=== PATIENT | female | born 1985 | race Caucasian/White ===

== ENCOUNTER 2020-06-06 04:36 | Inpatient (IN) | payer BC ==
[2020-06-06] MEDS ORDERED: ceFAZolin 2 GM in Premix Bag 1 BAG IV ONE (04:43)
[2020-06-06] MEDS ORDERED: Citric Acid/Sodium Citrate Solution 30 ML Cup PO ONE (04:43)
[2020-06-06] MEDS ORDERED: Sodium Chloride 0.9% 10 ML Syringe FLUSH PRN ×2 (04:43→09:31)
[2020-06-06] MEDS ORDERED: Sodium Chloride 0.9% 2.5 ML Syringe FLUSH PRN ×2 (04:43→09:31)
[2020-06-06] MEDS ORDERED: Sodium Chloride 0.9% 10 ML SDV IV PRN (04:43)
[2020-06-06] MEDS ORDERED: Oxytocin/0.9 % Sodium Chloride 30 UNIT/500 ML BAG IV SCH (04:45)
--- NOTE | 2020-06-06 06:12 | PCM.PREANE ---
Preanesthetic Assessment - Anesthesia/Transfusion/Family Hx Anesthesia History: Prior Anesthesia Without Reaction Family History of Anesthesia Reaction: No Transfusion History: No Prior Transfusion(s) Intubation History: Unknown - Review of Systems General: No Symptoms Pulmonary: No Symptoms Cardiovascular: No Symptoms Gastrointestinal: No Symptoms Neurological: No Symptoms Other: Reports: None - Physical Assessment Height: 5 ft 3 in Weight: 72.575 kg ASA Class: 2 Mental Status: Alert & Oriented x3 Airway Class: Mallampati = 2 Dentition: Reports: Normal Dentition Thyro-Mental Finger Breadths: 3 Mouth Opening Finger Breadths: 3 ROM/Head Extension: Full Lungs: Clear to Auscultation, Normal Respiratory Effort Cardiovascular: Regular Rate, Regular Rhythm - Lab Values: Laboratory Last Values WBC 11.47 K/uL (4.0-11.0) H 06/06/20 05:00 RBC 4.27 M/uL (4.30-5.90) L 06/06/20 05:00 Hgb 13.0 g/dL (12.0-16.0) 06/06/20 05:00 Hct 38.4 % (36.0-46.0) 06/06/20 05:00 MCV 89.9 fL (80.0-98.0) 06/06/20 05:00 MCH 30.4 pg (27.0-32.0) 06/06/20 05:00 MCHC 33.9 g/dL (31.0-37.0) 06/06/20 05:00 RDW Std Deviation 41.1 fl (28.0-62.0) 06/06/20 05:00 RDW Coeff of Raghav 13 % (11.0-15.0) 06/06/20 05:00 Plt Count 304 K/uL (150-400) 06/06/20 05:00 MPV 9.20 fL (7.40-12.00) 06/06/20 05:00 Nucleated RBC % 0.0 /100WBC 06/06/20 05:00 Nucleated RBCs # 0 K/uL 06/06/20 05:00 - Allergies Allergies/Adverse Reactions: Allergies Allergy/AdvReac Type Severity Reaction Status Date / Time mold Allergy sinus Verified 05/31/20 10:21 congestion dust Allergy sinus Uncoded 05/31/20 09:40 congestion - Blood Blood Available: No - Anesthesia Plan Pre-Op Medication Ordered: None - Acknowledgements Anesthesia Type Planned: Spinal (General anesthesia back-up plan) Pt an Appropriate Candidate for the Planned Anesthesia: Yes Alternatives and Risks of Anesthesia Discussed w Pt/Guardian: Yes Pt/Guardian Understands and Agrees with Anesthesia Plan: Yes PreAnesthesia Questionnaire HEENT History: Reports: Allergic Rhinitis Cardiovascular History: Reports: None Respiratory History: Reports: Asthma Other Respiratory History: states had asthma when a kid but out grew it about 10 yrs. ago Gastrointestinal History: Reports: None Genitourinary History: Reports: None [employer]OR History: Denies: ( breech presentattion with cord around arond the neck- first C/S) Musculoskeletal History: Reports: Other (See Below) Other Musculoskeletal History: states had injury to left knee that required surgery Neurological History: Reports: None Psychiatric History: Reports: None Endocrine/Metabolic History: Reports: None Hematologic History: Reports: None Immunologic History: Reports: None Oncologic (Cancer) History: Reports: Breast Dermatologic History: Reports: None - Infectious Disease History Infectious Disease History: Reports: None - Past Surgical History Head Surgeries/Procedures: Reports: None HEENT Surgical History: Reports: Oral Surgery Cardiovascular Surgical History: Reports: None Respiratory Surgical History: Reports: None GI Surgical History: Reports: None Female Surgical History: Reports: Mastectomy (2017 for intraductal cancer - l eft side) Endocrine Surgical History: Reports: None Neurological Surgical History: Reports: None Musculoskeletal Surgical History: Reports: Arthroscopic Knee (x2 (left)) Other Musculoskeletal Surgeries/Procedures:: states had ACL reconstruction left knee Oncologic Surgical History: Reports: Mastectomy Other Oncologic Surgeries/Procedures: left breast - SUBSTANCE USE Tobacco Use Status *Q: Former Tobacco User - HOME MEDS Home Medications: Home Meds Mv-Mn/Iron/FA/Herbal/Digestive [ One Tablet] 1 tab PO DAILY 05/31/20 [History] - CURRENT (IN HOUSE) MEDS Current Meds: Current Medications Oxytocin/Sodium Chloride (Oxytocin 30 Unit/500 Ml-Ns) 30 unit in 500 mls @ 250 mls/hr IV TITRATE [facility] Lactated Ringer's (Ringers, Lactated) 1,000 mls @ 500 mls/hr IV BOLUS [place] Sodium Chloride (Saline Flush) 10 ml FLUSH ASDIRECTED PRN PRN Reason: Keep Vein Open Sodium Chloride (Saline Flush) 2.5 ml FLUSH ASDIRECTED PRN PRN Reason: Keep Vein Open Sodium Chloride (Normal Saline) 10 ml IV ASDIRECTED PRN PRN Reason: IV Use Discontinued Medications Citric Acid/Sodium Citrate (Bicitra Solution) 30 ml PO ONETIME ONE Stop: 06/06/20 04:44 Cefazolin Sodium/Dextrose 2 gm (/ Premix) 50 mls @ 100 mls/hr IV ONETIME ONE Stop: 06/06/20 05:12
[2020-06-06] MEDS: Lactated Ringers 1,000 ML IV SCH ×2 (06:15→07:27)
[2020-06-06] MEDS ORDERED: Morphine PF 10 MG/10 ML SDV ONE (07:34)
[2020-06-06] MEDS ORDERED: ceFAZolin/Dextrose,Iso-Osmotic 2 GM/50 ML Duplex Bag IV ONE (07:35)
[2020-06-06] MEDS ORDERED: Oxytocin 10 Units/1 ML SDV ONE (08:25)
[2020-06-06] MEDS ORDERED: Ondansetron 4 MG/2 ML SDV ONE (08:26)
[2020-06-06] MEDS ORDERED: diphenhydrAMINE 50 MG/ML SDV IVPUSH PRN ×2 (08:44→09:31)
[2020-06-06] MEDS ORDERED: Nalbuphine 10 MG/1 ML Vial IVPUSH PRN (08:44)
[2020-06-06] MEDS ORDERED: Naloxone 0.4 MG/ML Syringe IVPUSH PRN (08:44)
[2020-06-06] MEDS ORDERED: Acetaminophen/oxyCODONE 325-5 MG Tab PO PRN ×2 (08:44→09:31)
[2020-06-06] MEDS ORDERED: Acetaminophen/HYDROcodone 325-5 MG Tab PO PRN (08:44)
[2020-06-06] MEDS ORDERED: Dexamethasone 4 MG/ML 5 ML MDV ONE (09:06)
[2020-06-06] MEDS ORDERED: Bisacodyl 10 MG Supp RECTAL PRN (09:31)
[2020-06-06] MEDS ORDERED: Ondansetron 4 MG/2 ML SDV IVPUSH PRN (09:31)
[2020-06-06] MEDS ORDERED: Methylergonovine 0.2 MG/1 ML Amp IM PRN (09:31)
[2020-06-06] MEDS ORDERED: Oxytocin 10 Units/1 ML SDV IM PRN (09:31)
[2020-06-06] MEDS ORDERED: Misoprostol 200 MCG Tab RECTAL PRN (09:31)
[2020-06-06] MEDS ORDERED: Tranexamic Acid 1,000 MG in Sodium Chloride 0.9% 100 ML IV PRN (09:31)
[2020-06-06] MEDS ORDERED: Lanolin 100% Cream 7 GM Tube TOP PRN (09:31)
[2020-06-06] MEDS ORDERED: Lactated Ringers 1,000 ML IV SCH (09:45)
[2020-06-06] MEDS: Ketorolac 30 MG/ML SDV IVPUSH SCH ×3 (09:53→21:39)
--- NOTE | 2020-06-06 10:46 | PCM.POSTAN ---
POST ANESTHESIA ASSESSMENT - MENTAL STATUS Mental Status: Alert, Oriented Free Text/Narrative:: Just states that her vision is blurry - RESPIRATORY Respiratory Status: Respiratory Rate WNL, Airway Patent, O2 Saturation Stable - CARDIOVASCULAR CV Status: Pulse Rate WNL, Blood Pressure Stable - GASTROINTESTINAL GI Status: No Symptoms - PAIN Pain Score: 0 - POST OP HYDRATION Hydration Status: Adequate & Stable - OBSERVATIONS Free Text/Narrative:: The tolerated the procedure well. There were no apparent anesthetic complications at this time. Discharge to floor per criteria.
--- NOTE | 2020-06-06 13:58 | OR ---
SURGEON: Mark Burnette MD DATE OF PROCEDURE: 06/06/2020 INDICATION FOR PROCEDURE: A 34-year-old, G1, P0, at 39 weeks and 2 days, presenting for scheduled section due to breech presentation. The baby was noted to be in complete breech presentation around 36 weeks. Ultrasound showed the baby had a nuchal cord, therefore was not a good candidate for external cephalic version. She had otherwise uncomplicated . She has a history of breast cancer, had left mastectomy and is in remission currently. PREOPERATIVE DIAGNOSES: 1. Tenorio intrauterine at 39 weeks and 2 days. 2. Breech presentation. 3. Nuchal cord. POSTOPERATIVE DIAGNOSES: 1. Tenorio intrauterine at 39 weeks and 2 days. 2. Breech presentation. 3. Nuchal cord. PROCEDURE PERFORMED: Primary low transverse section. ANESTHESIOLOGIST: Dr. Paty Shay. ANESTHESIA: Spinal. FINDINGS: Viable female in complete breech presentation. score of 9 and 9. weight of 6 pounds 10 ounces. Nuchal cord x1. EBL: 600cc Urine Output: 300cc DESCRIPTION OF PROCEDURE: The procedure was discussed with the patient. Risks including bleeding; infection; DVTs; injury to surrounding organs including bladder, bowel, ureters. The patient expressed understanding. Questions answered and consent signed. The patient was brought to the operating room. She received antibiotics and SCDs. Spinal anesthesia was placed and the Law catheter was placed. The abdomen was prepped with chlorhexidine in sterile fashion, then draped and tested for anesthesia. The spinal was found to be adequate. A Pfannenstiel incision was made with a scalpel and dissected down to fascia. Sites of bleeding were noted and cauterized. The fascia was cleared of subcutaneous tissue. The fascia was incised in the midline and extended laterally with curved Ceballos scissors. Adry clamps were placed on the superior fascial edge. The rectus muscles were from the fascia by blunt dissection and using Ceballos scissors. Rectus muscle was along the inferior edge in the same fashion. Peritoneum was identified and the opening was made bluntly. The Drew O retractor was placed in the peritoneal cavity. The bladder was noted to be away from the lower uterine segment. The uterus was incised using the scalpel transversely along the lower uterine segment and extended bluntly. Clear amniotic fluid was noted. The 's hips were grasped and turned to sacrum anterior and elevated through the hysterotomy followed by the delivery of both legs. The right shoulder was then rotated anteriorly and the right arm delivered by sweeping toward the body. Then, the left shoulder and arm were delivered in similar fashion. The head was delivered by elevating the body and flexing the chin. The nose and mouth were suctioned. The umbilical cord was clamped and cut after 30 seconds and no longer pulsating. The baby was pink, crying vigorously, and moving all extremities after delivery. The was handed over to nursery staff. Cord gases were obtained. The placenta was delivered with gentle traction on the umbilical cord. The Drew retractor had slipped out of the incision. Therefore, a bladder blade was used for retraction. The uterus was exteriorized and clean lap used to remove any remaining membranes. Allis clamps were used to grasp the angles and lower edges of the incision. The uterine incision was closed using 0 Monocryl in running locking fashion. A second layer was closed 0 Vicryl in a vertical imbricating fashion. The incision was found to be hemostatic. The bilateral ovaries and fallopian tubes were normal appearing. The uterus was firm and placed back into the peritoneal cavity. The paracolic gutters were cleared of any clots. Copious irrigation of the abdomen was performed. The incision was again checked for hemostasis. The peritoneum was grasped by hemostats and closed using 2-0 Vicryl in running fashion. The rectus muscle was brought together to the midline using a mattress stitch with 0 Vicryl. The rectus muscle was examined and found to be hemostatic. The fascia was closed using 0 Vicryl in running fashion. The subcutaneous tissue was irrigated. No bleeding areas were noted. The subcutaneous layer was brought together with 2-0 plain suture in running fashion. The skin was then closed with 3-0 Monocryl on a Roge needle. ABD pressure dressing was placed over the incision. The patient was stable and transferred to the recovery room. She was given postop care instructions. JESUS DAS /[id number] NATHALIE
[2020-06-06] MEDS: Docusate Sodium 100 MG Cap PO SCH (21:38)
[2020-06-07] MEDS: Ketorolac 30 MG/ML SDV IVPUSH SCH ×2 (04:03→09:32)
--- NOTE | 2020-06-07 08:43 | PCM.PNPP ---
- General Info Date of Service: 06/07/20 Functional Status: Reports: Pain Controlled, Tolerating Diet, Ambulating, Urinating - Review of Systems General: Reports: No Symptoms HEENT: Reports: No Symptoms Pulmonary: Reports: No Symptoms Cardiovascular: Reports: No Symptoms Gastrointestinal: Reports: No Symptoms Genitourinary: Reports: No Symptoms Musculoskeletal: Reports: No Symptoms Skin: Reports: No Symptoms Neurological: Reports: No Symptoms Psychiatric: Reports: No Symptoms - Patient Data Vital Signs - Most Recent: Last Vital Signs Temp 36.6 C 06/07/20 08:39 Pulse 57 L 06/07/20 06:00 Resp 20 06/07/20 08:39 BP 133/80 06/07/20 08:39 Pulse Ox 96 06/07/20 08:39 Weight - Most Recent: 160 lb I&O - Last 24 Hours: Intake & Output 06/06/20 06/07/20 06/07/20 22:59 06:59 14:59 Output Total 192 6305 Balance -375 -7479 Lab Results - Last 24 Hours: Laboratory Results - last 24 hr 06/07/20 Range/Units 05:03 Hgb 9.5 L (12.0-16.0) g/dL Hct 28.5 L (36.0-46.0) % Med Orders - Current: Current Medications Hydrocodone Bitart/Acetaminophen (Walton 325-5 Mg) 2 tab PO Q6H PRN PRN Reason: Pain (moderate 4-6) Bisacodyl (Dulcolax) 10 mg RECTAL ONETIME PRN PRN Reason: Constipation Diphenhydramine HCl (Benadryl) 25 mg IVPUSH Q4H PRN PRN Reason: Itching Stop: 06/07/20 08:45 Diphenhydramine HCl (Benadryl) 25 mg IVPUSH Q6H PRN PRN Reason: Itching or Nausea Docusate Sodium (Colace) 100 mg PO BID [facility] Last Admin: 06/06/20 21:38 Dose: 100 mg Documented by: Emollient Ointment (Lansinoh Hpa) 0 gm TOP ASDIRECTED PRN PRN Reason: Sore Nipples Oxytocin/Sodium Chloride (Oxytocin 30 Unit/500 Ml-Ns) 30 unit in 500 mls @ 250 mls/hr IV TITRATE [facility] Lactated Ringer's (Ringers, Lactated) 1,000 mls @ 500 mls/hr IV BOLUS [facility] Last Admin: 06/06/20 07:27 Dose: 500 mls/hr Documented by: Lactated Ringer's (Ringers, Lactated) 1,000 mls @ 125 mls/hr IV ASDIRECTED [facility] Last Admin: 06/06/20 15:47 Dose: 125 mls/hr Documented by: Tranexamic Acid 1,000 mg/ (Sodium Chloride) 110 mls @ 660 mls/hr IV ONETIME PRN PRN Reason: Bleeding Ibuprofen (Motrin) 800 mg PO Q8H PRN PRN Reason: mild pain or fever Ketorolac Tromethamine (Toradol) 30 mg IVPUSH Q6H [facility] Stop: 06/07/20 09:46 Last Admin: 06/07/20 04:03 Dose: 30 mg Documented by: Methylergonovine Maleate (Methergine) 0.2 mg IM ONETIME PRN PRN Reason: Excessive Vaginal Bleeding Misoprostol (Cytotec) 1,000 mcg RECTAL ONETIME PRN PRN Reason: excessive bleeding Nalbuphine HCl (Nubain) 2.5 mg IVPUSH Q3H PRN PRN Reason: Pruritis Stop: 06/07/20 08:45 Naloxone HCl (Narcan) 0.1 mg IVPUSH ONETIME PRN PRN Reason: Respiratory Depression Stop: 06/07/20 08:45 Ondansetron HCl (Zofran) 4 mg IVPUSH Q4H PRN PRN Reason: Nausea/Vomiting Oxycodone/Acetaminophen (Percocet 325-5 Mg) 1 tab PO ONETIME PRN PRN Reason: Pain (mild 1-3) Oxycodone/Acetaminophen (Percocet 325-5 Mg) 1 tab PO Q4H PRN PRN Reason: Pain (moderate 4-6) Oxycodone/Acetaminophen (Percocet 325-5 Mg) 2 tab PO Q4H PRN PRN Reason: Pain (moderate 4-6) Oxytocin (Pitocin) 10 unit IM ASDIRECTED PRN PRN Reason: Excessive Vaginal Bleeding Sodium Chloride (Saline Flush) 10 ml FLUSH ASDIRECTED PRN PRN Reason: Keep Vein Open Sodium Chloride (Saline Flush) 2.5 ml FLUSH ASDIRECTED PRN PRN Reason: Keep Vein Open Sodium Chloride (Normal Saline) 10 ml IV ASDIRECTED PRN PRN Reason: IV Use Sodium Chloride (Saline Flush) 10 ml FLUSH ASDIRECTED PRN PRN Reason: Keep Vein Open Sodium Chloride (Saline Flush) 2.5 ml FLUSH ASDIRECTED PRN PRN Reason: Keep Vein Open Discontinued Medications Cefazolin Sodium/Dextrose (Ancef) Confirm Administered Dose 2 gm IV .STK-MED ONE Stop: 06/06/20 07:36 Citric Acid/Sodium Citrate (Bicitra Solution) 30 ml PO ONETIME ONE Stop: 06/06/20 04:44 Dexamethasone (Dexamethasone) Confirm Administered Dose 20 mg .ROUTE .STK-MED ONE Stop: 06/06/20 09:07 Cefazolin Sodium/Dextrose 2 gm (/ Premix) 50 mls @ 100 mls/hr IV ONETIME ONE Stop: 06/06/20 05:12 Morphine Sulfate (Duramorph Pf) Confirm Administered Dose 10 mg .ROUTE .STK-MED ONE Stop: 06/06/20 07:35 Ondansetron HCl (Zofran) Confirm Administered Dose 4 mg .ROUTE .STK-MED ONE Stop: 06/06/20 08:27 Oxytocin (Pitocin) Confirm Administered Dose 30 unit .ROUTE .STK-MED ONE Stop: 06/06/20 08:26 - Interaction Disposition, : [place] to Nursery Feeding: Breastfed Infant; Nursed Well Support Person: - Recovery Exam Fundal Tone: Firm Fundal Level: At Umbilicus Fundal Placement: Midline Lochia Amount: Scant Lochia Color: Rubra/Red Perineum Description: Intact, Minimal Bruising/Swelling Episiotomy/Laceration: None Bladder Status: Indwelling Catheter in Place Urinary Elimination: Indwelling Catheter - Exam General: Alert, Oriented, Cooperative, No Acute Distress HEENT: Pupils Equal, Pupils Reactive Neck: Supple, Trachea Midline, No JVD Lungs: Normal Respiratory Effort GI/Abdominal Exam: Soft, Non-Tender, No Organomegaly, No Distention Extremities: Normal Inspection, Normal Range of Motion, Non-Tender, No Pedal Edema Skin: Warm, Dry, Intact Wound/Incisions: Dressing Dry and Intact Neurological: No New Focal Deficit Psy/Mental Status: Alert, Normal Affect, Normal Mood - Problem List Review Problem List Initiated/Reviewed/Updated: Yes - My Orders Last 24 Hours: My Active Orders 06/06/20 09:31 Patient Status [ADT] Routine Ambulate [RC] PER UNIT ROUTINE Antiembolic Devices [RC] PER UNIT ROUTINE Communication Order [RC] PER UNIT ROUTINE Communication Order [RC] PER UNIT ROUTINE Communication Order [RC] Per Unit Routine Intake and Output [RC] Q4H May Shower [RC] ASDIRECTED Notify Provider Intake and Out [RC] ASDIRECTED Notify Provider Vital Signs [RC] ASDIRECTED RT Incentive Spirometry [RC] Q2HWA Vital Signs [RC] PER UNIT ROUTINE Acetaminophen/oxyCODONE [Percocet 325-5 MG] 1 tab PO Q4H PRN Acetaminophen/oxyCODONE [Percocet 325-5 MG] 2 tab PO Q4H PRN Ibuprofen [Motrin] 800 mg PO Q8H PRN Lanolin [Lansinoh HPA] See Dose Instructions TOP ASDIRECTED PRN Methylergonovine [Methergine] 0.2 mg IM ONETIME PRN Ondansetron [Zofran] 4 mg IVPUSH Q4H PRN Oxytocin [Pitocin] 10 unit IM ASDIRECTED PRN Sodium Chloride 0.9% [Saline Flush] 10 ml FLUSH ASDIRECTED PRN Sodium Chloride 0.9% [Saline Flush] 2.5 ml FLUSH ASDIRECTED PRN Tranexamic Acid [Cyklokapron] 1,000 mg Sodium Chloride 0.9% [Normal Saline] 100 ml IV ONETIME bisacodyL [Dulcolax] 10 mg RECTAL ONETIME PRN diphenhydrAMINE [Benadryl] 25 mg IVPUSH Q6H PRN miSOPROStoL [Cytotec] 1,000 mcg RECTAL ONETIME PRN Assess Lochia [WOMSER] Per Unit Routine Assess Uterine Involution [WOMSER] Per Unit Routine Breast Pump [WOMSER] Per Unit Routine Peripheral IV Discontinue [OM.PC] Routine Saline Lock Insert [OM.PC] Routine Sequential Compression Device [OM.PC] Per Unit Routine 06/06/20 09:32 Abdominal Binder [OM.PC] Per Unit Routine 06/06/20 09:45 Ketorolac [Toradol] 30 mg IVPUSH Q6H Lactated Ringers [Ringers, Lactated] 1,000 ml IV ASDIRECTED 06/06/20 Lunch Regular Diet [DIET] 06/06/20 21:00 Docusate Sodium [Colace] 100 mg PO BID 06/08/20 05:00 CBC WITH AUTO DIFF [HEME] Routine - Assessment Assessment:: 34yo POD1 s/p primary LTCS for breech presentation, stable and recovering well. - Plan Plan:: - vital stable - tolerating PO, voiding and ambulating well - pain controlled - Hgb 9.5 today, bleeding light, no s/s of anemia. Will repeat CBC tomorrow - well - Plan for discharge home tomorrow
[2020-06-07] MEDS: Docusate Sodium 100 MG Cap PO SCH ×2 (09:31→20:38)
--- NOTE | 2020-06-07 11:47 | PCM48HPAN ---
Post Anesthesia Note - EVALUATION WITHIN 48HRS OF ANESTHETIC Vital Signs in Normal Range: Yes Patient Participated in Evaluation: Yes Respiratory Function Stable: Yes Airway Patent: Yes Cardiovascular Function Stable: Yes Hydration Status Stable: Yes Pain Control Satisfactory: Yes Nausea and Vomiting Control Satisfactory: Yes Mental Status Recovered: Yes Vital Signs: Last Vital Signs Temp 36.6 C 06/07/20 08:39 Pulse 57 L 06/07/20 06:00 Resp 20 06/07/20 08:39 BP 133/80 06/07/20 08:39 Pulse Ox 96 06/07/20 08:39 - COMMENTS/OBSERVATIONS Free Text/Narrative:: Vision back to "normal" (baseline). She has no complaints at this time. There were no apparent anesthetic complications at this time. Discharge per OB TEAM.
[2020-06-07] MEDS: Ibuprofen 800 MG Tab PO PRN (20:37)
[2020-06-08] MEDS: Acetaminophen/oxyCODONE 325-5 MG Tab PO PRN ×2 (00:36→14:03)
--- NOTE | 2020-06-08 08:05 | PCM.PNPP ---
- General Info Date of Service: 06/08/20 Functional Status: Reports: Pain Controlled, Tolerating Diet, Ambulating, Urinating - Review of Systems General: Reports: No Symptoms HEENT: Reports: No Symptoms Pulmonary: Reports: No Symptoms Cardiovascular: Reports: No Symptoms Gastrointestinal: Reports: No Symptoms Genitourinary: Reports: No Symptoms Musculoskeletal: Reports: No Symptoms Skin: Reports: No Symptoms Neurological: Reports: No Symptoms Psychiatric: Reports: No Symptoms - Patient Data Vital Signs - Most Recent: Last Vital Signs Temp 35.9 C L 06/08/20 04:00 Pulse 59 L 06/08/20 04:00 Resp 17 06/08/20 04:00 BP 118/70 06/08/20 04:00 Pulse Ox 98 06/08/20 04:00 Weight - Most Recent: 160 lb Lab Results - Last 24 Hours: Laboratory Results - last 24 hr 06/08/20 Range/Units 04:43 WBC 10.50 (4.0-11.0) K/uL RBC 3.31 L (4.30-5.90) M/uL Hgb 9.8 L (12.0-16.0) g/dL Hct 30.9 L (36.0-46.0) % MCV 93.4 (80.0-98.0) fL MCH 29.6 (27.0-32.0) pg MCHC 31.7 (31.0-37.0) g/dL RDW Std Deviation 44.7 (28.0-62.0) fl RDW Coeff of Raghav 13 (11.0-15.0) % Plt Count 264 (150-400) K/uL MPV 9.10 (7.40-12.00) fL Neut % (Auto) 54.2 (48.0-80.0) % Lymph % (Auto) 35.4 (16.0-40.0) % [place] % (Auto) 7.2 (0.0-15.0) % Eos % (Auto) 3.0 (0.0-7.0) % Baso % (Auto) 0.2 (0.0-1.5) % Neut # (Auto) 5.7 (1.4-5.7) K/uL Lymph # (Auto) 3.7 H (0.6-2.4) K/uL [place] # (Auto) 0.8 (0.0-0.8) K/uL Eos # (Auto) 0.3 (0.0-0.7) K/uL Baso # (Auto) 0.0 (0.0-0.1) K/uL Nucleated RBC % 0.0 /100WBC Nucleated RBCs # 0 K/uL Med Orders - Current: Current Medications Hydrocodone Bitart/Acetaminophen ([place] 325-5 Mg) 2 tab PO Q6H PRN PRN Reason: Pain (moderate 4-6) Bisacodyl (Dulcolax) 10 mg RECTAL ONETIME PRN PRN Reason: Constipation Diphenhydramine HCl (Benadryl) 25 mg IVPUSH Q6H PRN PRN Reason: Itching or Nausea Docusate Sodium (Colace) 100 mg PO BID [facility] Last Admin: 06/07/20 20:38 Dose: 100 mg Documented by: Emollient Ointment (Lansinoh Hpa) 0 gm TOP ASDIRECTED PRN PRN Reason: Sore Nipples Oxytocin/Sodium Chloride (Oxytocin 30 Unit/500 Ml-Ns) 30 unit in 500 mls @ 250 mls/hr IV TITRATE [facility] Lactated Ringer's (Ringers, Lactated) 1,000 mls @ 500 mls/hr IV BOLUS [facility] Last Admin: 06/06/20 07:27 Dose: 500 mls/hr Documented by: Lactated Ringer's (Ringers, Lactated) 1,000 mls @ 125 mls/hr IV ASDIRECTED [facility] Last Admin: 06/06/20 15:47 Dose: 125 mls/hr Documented by: Tranexamic Acid 1,000 mg/ (Sodium Chloride) 110 mls @ 660 mls/hr IV ONETIME PRN PRN Reason: Bleeding Ibuprofen (Motrin) 800 mg PO Q8H PRN PRN Reason: mild pain or fever Last Admin: 06/07/20 20:37 Dose: 800 mg Documented by: Methylergonovine Maleate (Methergine) 0.2 mg IM ONETIME PRN PRN Reason: Excessive Vaginal Bleeding Misoprostol (Cytotec) 1,000 mcg RECTAL ONETIME PRN PRN Reason: excessive bleeding Ondansetron HCl (Zofran) 4 mg IVPUSH Q4H PRN PRN Reason: Nausea/Vomiting Oxycodone/Acetaminophen (Percocet 325-5 Mg) 1 tab PO ONETIME PRN PRN Reason: Pain (mild 1-3) Last Admin: 06/07/20 17:10 Dose: 1 tab Documented by: Oxycodone/Acetaminophen (Percocet 325-5 Mg) 1 tab PO Q4H PRN PRN Reason: Pain (moderate 4-6) Last Admin: 06/08/20 00:36 Dose: 1 tab Documented by: Oxycodone/Acetaminophen (Percocet 325-5 Mg) 2 tab PO Q4H PRN PRN Reason: Pain (moderate 4-6) Oxytocin (Pitocin) 10 unit IM ASDIRECTED PRN PRN Reason: Excessive Vaginal Bleeding Sodium Chloride (Saline Flush) 10 ml FLUSH ASDIRECTED PRN PRN Reason: Keep Vein Open Sodium Chloride (Saline Flush) 2.5 ml FLUSH ASDIRECTED PRN PRN Reason: Keep Vein Open Sodium Chloride (Normal Saline) 10 ml IV ASDIRECTED PRN PRN Reason: IV Use Sodium Chloride (Saline Flush) 10 ml FLUSH ASDIRECTED PRN PRN Reason: Keep Vein Open Sodium Chloride (Saline Flush) 2.5 ml FLUSH ASDIRECTED PRN PRN Reason: Keep Vein Open Discontinued Medications Cefazolin Sodium/Dextrose (Ancef) Confirm Administered Dose 2 gm IV .STK-MED ONE Stop: 06/06/20 07:36 Citric Acid/Sodium Citrate (Bicitra Solution) 30 ml PO ONETIME ONE Stop: 06/06/20 04:44 Last Admin: 06/07/20 21:21 Dose: Not Given Documented by: Dexamethasone (Dexamethasone) Confirm Administered Dose 20 mg .ROUTE .STK-MED ONE Stop: 06/06/20 09:07 Diphenhydramine HCl (Benadryl) 25 mg IVPUSH Q4H PRN PRN Reason: Itching Stop: 06/07/20 08:45 Cefazolin Sodium/Dextrose 2 gm (/ Premix) 50 mls @ 100 mls/hr IV ONETIME ONE Stop: 06/06/20 05:12 Last Admin: 06/07/20 21:21 Dose: Not Given Documented by: Ketorolac Tromethamine (Toradol) 30 mg IVPUSH Q6H [facility] Stop: 06/07/20 09:46 Last Admin: 06/07/20 09:32 Dose: 30 mg Documented by: Morphine Sulfate (Duramorph Pf) Confirm Administered Dose 10 mg .ROUTE .STK-MED ONE Stop: 06/06/20 07:35 Nalbuphine HCl (Nubain) 2.5 mg IVPUSH Q3H PRN PRN Reason: Pruritis Stop: 06/07/20 08:45 Naloxone HCl (Narcan) 0.1 mg IVPUSH ONETIME PRN PRN Reason: Respiratory Depression Stop: 06/07/20 08:45 Ondansetron HCl (Zofran) Confirm Administered Dose 4 mg .ROUTE .STK-MED ONE Stop: 06/06/20 08:27 Oxytocin (Pitocin) Confirm Administered Dose 30 unit .ROUTE .STK-MED ONE Stop: 06/06/20 08:26 - Interaction Infant Disposition, : to Nursery Feeding: Breastfed Infant; Nursed Well Support Person: - Recovery Exam Fundal Tone: Firm Fundal Level: 1 Fingerbreadths Below Umbilicus Fundal Placement: Midline Lochia Amount: Scant Lochia Color: Rubra/Red Perineum Description: Intact, Minimal Bruising/Swelling Episiotomy/Laceration: None Bladder Status: Voiding Urinary Elimination: Voided - Exam General: Alert, Oriented, Cooperative, No Acute Distress HEENT: Pupils Equal, Pupils Reactive Neck: Supple, Trachea Midline, No JVD Lungs: Normal Respiratory Effort GI/Abdominal Exam: Soft, Non-Tender, No Organomegaly, No Distention Extremities: Normal Inspection, Normal Range of Motion, Non-Tender, No Pedal Edema Skin: Warm, Dry, Intact Wound/Incisions: Healing Well Neurological: No New Focal Deficit Psy/Mental Status: Alert, Normal Affect, Normal Mood - Problem List Review Problem List Initiated/Reviewed/Updated: Yes - My Orders Last 24 Hours: My Active Orders 06/08/20 08:04 Ready for Discharge [RC] PER UNIT ROUTINE - Assessment Assessment:: 34yo POD2 s/p primary LTCS for breech presentation, stable and recovering well. - Plan Plan:: - vital stable - tolerating PO, voiding and ambulating well - pain controlled - Hgb stable at 9.8, bleeding light, no s/s of anemia. Will start iron at discharge - well - Plan for discharge home today, reviewed care instructions
[2020-06-08] MEDS: Ibuprofen 800 MG Tab PO PRN (09:04)
[2020-06-08] MEDS: Docusate Sodium 100 MG Cap PO SCH (09:04)
== END 2020-06-08 15:00 | disposition home or self-care (01) | DRG 540 ==
LOC: MW.OB 04:36
PROVIDERS: ADMIT Obstetrics & Gynecology; ATTEND Obstetrics & Gynecology
PROC: 10D00Z1 Extraction of Products of Conception, Low, Open Approach (ICD-10-PCS; principal; 2020-06-06)
DX: O32.1XX0 Maternal care for breech presentation, not applicable or unspecified (principal); Z3A.39 39 weeks gestation of pregnancy; Z37.0 Single live birth; O69.81X0 Labor and delivery complicated by cord around neck, without compression, not applicable or unspecified; Z20.828 Contact with and (suspected) exposure to other viral communicable diseases
CPT/HCPCS: 01961; 36415; 85014; 85018; 85025; 85027; 86592; 86850; 86900; 86901; 88307; A9270-GY; J0690; J1100; J1885; J2270; J2405; J2590; J7120; U0002

== ENCOUNTER 2021-11-05 07:09 | Day surgery (SDC) | payer BC ==
[~2021-11-05 07:09] MED LIST: Albuterol 0.083% 2.5 MG/3 ML Neb Soln NEB PRN; HYDROmorphone 1 MG/ML Syringe IVPUSH PRN; Lactated Ringers 1,000 ML IV SCH; Metoclopramide 10 MG/2 ML SDV IVPUSH PRN; Morphine 4 MG/ML VIAL IVPUSH PRN; Naloxone 0.4 MG/ML SDV IVPUSH PRN; Ondansetron 4 MG/2 ML SDV IVPUSH PRN; Sodium Chloride 0.9% 10 ML Syringe FLUSH PRN; Sodium Chloride 0.9% 2.5 ML Syringe FLUSH PRN; Sodium Chloride 0.9% 20 ML SDV IV PRN; ceFAZolin 2 GM in Premix Bag 1 BAG IV ONE; fentaNYL 100 MCG/2 ML SDV IVPUSH PRN
[2021-11-05] MEDS ORDERED: Bupivacaine 0.25% 30 ML SDV ONE (08:19)
[2021-11-05] MEDS ORDERED: Bupivacaine 0.5% 30 ML SDV ONE (08:20)
[2021-11-05] MEDS ORDERED: Propofol 200 MG/20 ML SDV ONE (08:54)
[2021-11-05] MEDS ORDERED: fentaNYL 250 MCG/5 ML SDV ONE (08:54)
[2021-11-05] MEDS ORDERED: Lidocaine 1% 20 ML MDV ONE (09:11)
[2021-11-05] MEDS ORDERED: Ketorolac 30 MG/ML SDV ONE (10:04)
[2021-11-05] MEDS ORDERED: Ondansetron 4 MG/2 ML SDV ONE (10:04)
== END 2021-11-05 11:20 | disposition home or self-care (01) ==
LOC: MW.SDS 07:09
PROVIDERS: ATTEND Surgery
DX: N80.9 Endometriosis, unspecified (principal); Z79.899 Other long term (current) drug therapy; Z98.890 Other specified postprocedural states; Z87.891 Personal history of nicotine dependence
CPT/HCPCS: 58999; 81025; J1885; J2405; J2704; J3010; J3490; J7120; 00400

== ENCOUNTER 2023-02-04 11:54 | Inpatient (IN) | payer BC ==
[2023-02-04] MEDS: Lactated Ringers 1,000 ML IV SCH ×2 (14:15→17:03)
[2023-02-04] MEDS ORDERED: Carboprost Tromethamine 250 MCG/1 mL Vial IM PRN (14:22)
[2023-02-04] MEDS ORDERED: Sodium Chloride 0.9% 10 ML Syringe FLUSH PRN (14:22)
[2023-02-04] MEDS ORDERED: Sodium Chloride 0.9% 20 ML SDV IV PRN (14:22)
[2023-02-04] MEDS ORDERED: Ondansetron 4 MG Tab.DIS PO PRN (14:22)
[2023-02-04] MEDS ORDERED: Butorphanol 1 MG/ML SDV IVPUSH PRN (14:22)
[2023-02-04] MEDS ORDERED: Misoprostol 200 MCG Tab PO PRN (14:22)
[2023-02-04] MEDS ORDERED: Sodium Chloride 0.9% 2.5 ML Syringe FLUSH PRN (14:22)
[2023-02-04] MEDS ORDERED: Methylergonovine 0.2 MG/1 ML Amp IM PRN (14:22)
[2023-02-04] MEDS ORDERED: Tranexamic Acid 1,000 MG in Sodium Chloride 0.9% 100 ML IV PRN (14:22)
[2023-02-04] MEDS ORDERED: Water For Irrigation,Sterile 1,000 ML Container IRR PRN (14:22)
[2023-02-04] MEDS ORDERED: Lidocaine 1% 50 ML MDV INJECT PRN (14:22)
[2023-02-04] MEDS ORDERED: Nalbuphine HCl 10 MG/ 1ML Amp IVPUSH PRN (14:26)
[2023-02-04] MEDS ORDERED: Oxytocin/0.9 % Sodium Chloride 30 UNIT/500 ML BAG IV SCH (14:30)
[2023-02-04 14:35] LABS: HEMATOCRIT 38.5 % (36.0-46.0); HEMOGLOBIN 13.1 g/dL (12.0-16.0); MEAN CORPUSCULAR HEMOGLOBIN 30.7 pg (27.0-32.0); MEAN CORPUSCULAR VOLUME 90.2 fL (80.0-98.0); PLATELET COUNT,PLT 269 K/uL (150-400); RED BLOOD CELL COUNT 4.27 M/uL (4.30-5.90)
[2023-02-04] MEDS ORDERED: ePHEDrine 50 MG/ML SDV IVPUSH PRN ×2 (17:19)
[2023-02-04] MEDS ORDERED: Phenylephrine HCl 0.5 MG/5 ML AMP IVPUSH PRN (17:19)
[2023-02-04] MEDS ORDERED: Ropivacaine HCl/PF 400 MG in Premix Bag 1 BAG EPIDUR SCH (17:30)
[2023-02-04] MEDS ORDERED: Bisacodyl 10 MG Supp RECTAL PRN (22:41)
[2023-02-04] MEDS ORDERED: Docusate Sodium 100 MG Cap PO PRN (22:41)
[2023-02-04] MEDS ORDERED: Ibuprofen 400 MG Tab PO PRN (22:41)
[2023-02-04] MEDS ORDERED: oxyCODONE 5 MG Tab PO PRN (22:41)
[2023-02-04] MEDS ORDERED: Acetaminophen 500 MG Tab PO PRN (22:41)
[2023-02-04] MEDS ORDERED: Lanolin 100% Cream 7 GM Tube TOP PRN (22:41)
[2023-02-04 23:05] LABS: PH,UMBILICAL VENOUS 7.364 (7.25-7.45)
[2023-02-04 23:06] LABS: PH,UMBILICAL ARTERIAL 7.222 (7.18-7.38)
[2023-02-04] MEDS: Acetaminophen 500 MG Tab PO PRN (23:23)
[2023-02-04] MEDS: Ibuprofen 800 MG Tab PO PRN (23:25)
[2023-02-04] MEDS: Benzocaine/Menthol 20%-0.5% Spray 78 GM Cannister TOP PRN (23:27)
[2023-02-04] MEDS: Witch Hazel Medicated Pads 40/Jar TOP PRN (23:28)
[2023-02-05 06:19] LABS: HEMATOCRIT 33.3 % (36.0-46.0); HEMOGLOBIN 11.5 g/dL (12.0-16.0)
[2023-02-05] MEDS: Acetaminophen 500 MG Tab PO PRN (16:22)
[2023-02-05] MEDS: Ibuprofen 800 MG Tab PO PRN (16:23)
[2023-02-05] MEDS ORDERED: Dexmedetomidine 200 MCG/2 ML SDV ONE (18:11)
[2023-02-06] MEDS: Ibuprofen 800 MG Tab PO PRN (04:31)
[2023-02-06] MEDS: Witch Hazel Medicated Pads 40/Jar TOP PRN (07:38)
[2023-02-06] MEDS: Benzocaine/Menthol 20%-0.5% Spray 78 GM Cannister TOP PRN (07:39)
== END 2023-02-06 13:26 | disposition home or self-care (01) | DRG 560 ==
LOC: MW.OBCHECK 11:54 → MW.OB 11:55 → MW.OBCHECK 14:21 → MW.OB 14:22 → OBSVTOIN 22:12 → MW.OB 02-05 00:54
PROVIDERS: ADMIT Obstetrics & Gynecology; ATTEND Obstetrics & Gynecology
PROC: 10E0XZZ Delivery of Products of Conception, External Approach (ICD-10-PCS; principal; 2023-02-04)
PROC: 10907ZC Drainage of Amniotic Fluid, Therapeutic from Products of Conception, Via Natural or Artificial Opening (ICD-10-PCS; 2023-02-04)
PROC: 0HQ9XZZ Repair Perineum Skin, External Approach (ICD-10-PCS; 2023-02-04)
PROC: 0UQMXZZ Repair Vulva, External Approach (ICD-10-PCS; 2023-02-04)
PROC: 3E0R3BZ Introduction of Anesthetic Agent into Spinal Canal, Percutaneous Approach (ICD-10-PCS; 2023-02-04)
PROC: 00HU33Z Insertion of Infusion Device into Spinal Canal, Percutaneous Approach (ICD-10-PCS; 2023-02-04)
DX: O48.0 Post-term pregnancy (principal); Z37.0 Single live birth; O13.4 Gestational [pregnancy-induced] hypertension without significant proteinuria, complicating childbirth; O70.0 First degree perineal laceration during delivery; Z3A.40 40 weeks gestation of pregnancy; Z85.3 Personal history of malignant neoplasm of breast
CPT/HCPCS: 01967; 36415; 51702; 59025; 59409; 82803; 85014; 85018; 85027; 86592; 86850; 86900; 86901; A9270-GY; J2590; J3490; J7120